=== PATIENT | male | born 1980 | race Caucasian/White ===

== ENCOUNTER 2017-07-23 02:35 | Emergency (ER) | payer OTHER | END 2017-07-23 05:31 | disposition left against medical advice (07) | LOC: FTE 02:35 | DX: S39.94XA Unspecified injury of external genitals, initial encounter (principal); F17.210 Nicotine dependence, cigarettes, uncomplicated; X58.XXXA Exposure to other specified factors, initial encounter; Y92.9 Unspecified place or not applicable | CPT/HCPCS: 99282; Z7502 ==

== ENCOUNTER 2017-09-18 01:47 | Emergency (ER) | payer SELFPAY, OTHER | END 2017-09-18 05:42 | disposition left against medical advice (07) | LOC: FTE 01:47 | DX: Z53.21 Procedure and treatment not carried out due to patient leaving prior to being seen by health care provider (principal) ==

== ENCOUNTER 2017-12-28 02:21 | Emergency (ER) | payer OTHER | END 2017-12-28 04:40 | disposition home or self-care (01) | LOC: FTE 02:21 | DX: L03.116 Cellulitis of left lower limb (principal); F17.210 Nicotine dependence, cigarettes, uncomplicated; X58.XXXA Exposure to other specified factors, initial encounter; Y92.9 Unspecified place or not applicable | CPT/HCPCS: 99284; Z7502 ==

== ENCOUNTER 2018-05-26 16:36 | Emergency (ER) | payer SELFPAY, OTHER | END 2018-05-26 19:22 | disposition left against medical advice (07) | LOC: FTE 16:36 | DX: Z53.21 Procedure and treatment not carried out due to patient leaving prior to being seen by health care provider (principal) ==